=== PATIENT | male | born 1940 | race Caucasian/White ===

== ENCOUNTER 2017-11-11 07:51 | Outpatient (CLI) | payer OTHER | END 2017-11-11 08:03 | disposition home or self-care (01) | LOC: NUCLEAR 07:51 | DX: R55 Syncope and collapse (principal) ==

== ENCOUNTER 2017-11-26 10:52 | Outpatient (CLI) | payer OTHER | END 2017-11-26 11:30 | disposition home or self-care (01) | LOC: NUCLEAR 10:52 | DX: I20.8 Other forms of angina pectoris (principal) ==

== ENCOUNTER 2018-12-20 09:57 | Emergency (ER) | payer OTHER ==
[~2018-12-20] VITALS: Ht 167.6 cm; Wt 68.9 kg
== END 2018-12-20 12:32 | disposition home or self-care (01) ==
LOC: ER 09:57
DX: L03.012 Cellulitis of left finger (principal); S60.1 Contusion of finger with damage to nail; W23.0XXS Caught, crushed, jammed, or pinched between moving objects, sequela

== ENCOUNTER 2025-04-12 13:46 | Outpatient (CLI) | payer OTHER | END 2025-04-12 13:50 | disposition home or self-care (01) | LOC: MRI 13:46 | PROVIDERS: ATTEND Family Medicine Geriatric Medicine | DX: I48.91 Unspecified atrial fibrillation (principal); I13.10 Hypertensive heart and chronic kidney disease without heart failure, with stage 1 through stage 4 chronic kidney disease, or unspecified chronic kidney disease; R73.01 Impaired fasting glucose; Z79.01 Long term (current) use of anticoagulants | CPT/HCPCS: 70551 ==